=== PATIENT | male | born 1975 | race Caucasian/White ===

== ENCOUNTER 2017-01-28 16:08 | Inpatient (IN) | payer MEDICARE, MEDICAID ==
[~2017-01-28 16:08] MED LIST: ALPHAGAN P5 M1 LEFT EYE; AMITRIPTYLINE H50 M1 PO; ANDROGEL2.5 G1 TD; ASPIRIN81 M1 PO; ASPIRIN81 MG PO; AUGMENTIN 875-1 EAC1 PO; AUGMENTIN 875-1 EAC2 PO; CALCIUM 1,2001 EACH PO; CILOSTAZOL100 M1 PO; CILOSTAZOL100 MG PO; COMBIGAN EYE DRO5 M1 EACH EYE; GINKGO BILOBA120 M2 PO; GINKGO BILOBA120 MG PO; HUMALOG100 U/ML SQ; HUMALOG100 UNIT/2 SC; INVANZ1 GM IV; LANTUS SOL100 UNIT/1 SC; LEVAQUIN750 M1 PO; LEVOTHYROXINE150 MCG PO; LEVOTHYROXINE200 MC4 PO; LEVOTHYROXINE200 MCG PO; LIPITOR20 M1 PO; LISINOPRIL10 M1 PO; LISINOPRIL20 M1 PO; LORTAB 5-325 M1 EAC1 PO; MULTIVITAMINS1 EAC6 PO; NEURONTIN400 M1 PO; NEW INSULIN; NORCO 5-325 TA1 EACH PO; NORCO 5/3251 TA1 PO; NOVOLIN N100 U/ML SQ; PERCOCET 5-3251 EACH PO; POTASSIUM CHLO10 ME2 PO; SELENIUM200 MC4 PO; SILVADENE20 G1 TOP; SULFAMYLON SOL250 M1 TOP; TIMOLOL MALEATE5 M3 LEFT EYE; TRAMADOL HCL50 M2 PO; TRAMADOL HCL50 MG PO; TRUSOPT10 ML RIGHT EYE; ULTRAM50 M1 PO; VITAMIN B-6100 MG PO; VITAMIN C500 M3 PO; VITAMIN D31000 UNI3 PO; WELLBUTRIN SR150 M2 PO; ZINC50 M2 PO; [UNRECOGNIZED DRUG - MIXTURE] PO
[2017-01-28] MEDS ORDERED: TRESIBA FL200 UNIT/1 SC (16:22)
[2017-01-28 17:01] LABS: BASO % 0.4 % (0-2); EOS % 0.8 % (0-7); EOSINOPHIL ABSOLUTE COUNT 0.1 tho/cmm (0.0-0.7); HCT-HEMATOCRIT 34.3 % (36.0-53.5); HGB-HEMOGLOBIN 11.3 gm/dl (13.5-17.0); IMMATURE GRANULOCYTES ABSOLUTE 0.02 tho/cmm (0-0.03); IMMATURE GRANULOCYTES PERCENT 0.2 % (0-0.3); LYMPH % 5.5 % (20-45); LYMPH ABSOLUTE COUNT 0.5 tho/cmm (0.8-4.5); MCH (MEAN CORPUSCULAR HGB) 28.8 pg (28.0-32.0); MCHC MEAN CORPUSCULAR HGB CONC 32.9 % (32.0-36.0); MCV (MEAN CELL VOLUME) 87.5 fl (82.0-96.0); MONO % 6.6 % (0-12); MONOCYTE ABSOLUTE COUNT 0.6 tho/cmm (0.0-1.2); NEUTROPHIL ABSOLUTE COUNT 8.1 tho/cmm (1.6-8.0); NEUTROPHIL-AUTOMATED 8.1 tho/cmm (1.6-8.0); NEUTROPHILS % 86.5 % (40-80); PLATELET COUNT 295 tho/cmm (150-450); RED BLOOD COUNT 3.92 mil/cmm (4.40-5.70); RED CELL DISTRIBUTION WIDTH 13.5 % (12.4-16.4); WHITE BLOOD COUNT 9.3 tho/cmm (4.0-10.0)
[2017-01-28 17:23] LABS: ALB/GLOB RATIO 0.5 (0.8-2.0); ALBUMIN 2.2 g/dl (3.5-5.0); ALKALINE PHOSPHATASE 205 U/L (33-138); ALT/SGPT 87 U/L (12-78); ANION GAP 12 mmol/L (0-20); AST/SGOT 163 U/L (10-40); BILIRUBIN,TOTAL 0.3 mg/dl (0.0-1.5); BLOOD UREA NITROGEN 44 mg/dl (6-24); CALCIUM 7.7 mg/dl (8.5-10.5); CARBON DIOXIDE-VENOUS 23 mmol/L (22-32); CHLORIDE 106 mmol/l (96-110); CREATININE 2.19 mg/dl (0.60-1.30); GLUCOSE 120 mg/dL (70-110); POTASSIUM 4.2 mmol/L (3.7-5.1); SODIUM 137 mmol/L (135-145); eGFR VALUE FOR BLACK 41 mL/Min
[2017-01-28 17:29] LABS: PROCALCITONIN 1.04 ng/ml (0.05-0.09)
[2017-01-28 17:43] LABS: INR 1.1 INR (0.9-1.1); PROTHROMBIN TIME 12.7 SECONDS (9.0-13.6)
[2017-01-29 02:31] LABS: BASO % 1.1 % (0-2); BASO ABSOLUTE COUNT 0.1 tho/cmm (0.0-0.2); EOS % 3.1 % (0-7); EOSINOPHIL ABSOLUTE COUNT 0.2 tho/cmm (0.0-0.7); HCT-HEMATOCRIT 32.7 % (36.0-53.5); HGB-HEMOGLOBIN 10.8 gm/dl (13.5-17.0); IMMATURE GRANULOCYTES ABSOLUTE 0.01 tho/cmm (0-0.03); IMMATURE GRANULOCYTES PERCENT 0.2 % (0-0.3); LYMPH % 10.5 % (20-45); LYMPH ABSOLUTE COUNT 0.7 tho/cmm (0.8-4.5); MCH (MEAN CORPUSCULAR HGB) 28.7 pg (28.0-32.0); MEAN PLATELET VOLUME 9.2 cmc (9.4-12.4); MONO % 9.5 % (0-12); MONOCYTE ABSOLUTE COUNT 0.6 tho/cmm (0.0-1.2); NEUTROPHILS % 75.6 % (40-80); PLATELET COUNT 306 tho/cmm (150-450); RED BLOOD COUNT 3.76 mil/cmm (4.40-5.70); RED CELL DISTRIBUTION WIDTH 13.4 % (12.4-16.4); WHITE BLOOD COUNT 6.6 tho/cmm (4.0-10.0)
[2017-01-29 02:40] LABS: ANION GAP 10 mmol/L (0-20); BLOOD UREA NITROGEN 35 mg/dl (6-24); CALCIUM 7.7 mg/dl (8.5-10.5); CARBON DIOXIDE-VENOUS 23 mmol/L (22-32); CHLORIDE 109 mmol/l (96-110); POTASSIUM 4.1 mmol/L (3.7-5.1); SODIUM 138 mmol/L (135-145); eGFR VALUE FOR BLACK 59 mL/Min
[2017-01-29 02:41] LABS: CREATININE 1.62 mg/dl (0.60-1.30); GLUCOSE 260 mg/dL (70-110)
[2017-01-29 02:46] LABS: TSH-THYROID STIMULATING HORM. 3.98 uIU/ml (0.40-3.80)
[2017-01-30 05:24] LABS: BASO % 0.4 % (0-2); BASO ABSOLUTE COUNT 0.1 tho/cmm (0.0-0.2); EOS % 3.5 % (0-7); EOSINOPHIL ABSOLUTE COUNT 0.5 tho/cmm (0.0-0.7); HCT-HEMATOCRIT 28.9 % (36.0-53.5); HGB-HEMOGLOBIN 9.5 gm/dl (13.5-17.0); IMMATURE GRANULOCYTES ABSOLUTE 0.03 tho/cmm (0-0.03); IMMATURE GRANULOCYTES PERCENT 0.2 % (0-0.3); LYMPH % 12.5 % (20-45); LYMPH ABSOLUTE COUNT 1.7 tho/cmm (0.8-4.5); MCH (MEAN CORPUSCULAR HGB) 28.1 pg (28.0-32.0); MCHC MEAN CORPUSCULAR HGB CONC 32.9 % (32.0-36.0); MCV (MEAN CELL VOLUME) 85.5 fl (82.0-96.0); MEAN PLATELET VOLUME 8.8 cmc (9.4-12.4); MONOCYTE ABSOLUTE COUNT 1.5 tho/cmm (0.0-1.2); NEUTROPHILS % 72.4 % (40-80); PLATELET COUNT 288 tho/cmm (150-450); RED BLOOD COUNT 3.38 mil/cmm (4.40-5.70); RED CELL DISTRIBUTION WIDTH 13.5 % (12.4-16.4)
[2017-01-30 05:36] LABS: WHITE BLOOD COUNT 13.8 tho/cmm (4.0-10.0)
[2017-01-30 05:43] LABS: ALB/GLOB RATIO 0.5 (0.8-2.0); ALKALINE PHOSPHATASE 295 U/L (33-138); ANION GAP 12 mmol/L (0-20); AST/SGOT 120 U/L (10-40); BILIRUBIN,TOTAL 0.4 mg/dl (0.0-1.5); BLOOD UREA NITROGEN 25 mg/dl (6-24); CALCIUM 7.7 mg/dl (8.5-10.5); CARBON DIOXIDE-VENOUS 23 mmol/L (22-32); CHLORIDE 107 mmol/l (96-110); GLUCOSE 212 mg/dL (70-110); POTASSIUM 4.1 mmol/L (3.7-5.1); SODIUM 138 mmol/L (135-145); eGFR VALUE FOR BLACK 56 mL/Min
[2017-01-30 05:51] LABS: ALT/SGPT 134 U/L (12-78)
[2017-01-30] MEDS ORDERED: VANCOMYCIN HCL500 MG IV (13:25)
== END 2017-01-30 14:30 | DRG 618 ==
LOC: BURN 16:08
PROVIDERS: Family Medicine; ADMIT Surgery
PROC: 0Y6P0Z3 Detachment at Right 1st Toe, Low, Open Approach (ICD-10-PCS; principal; 2017-01-30)
PROC: 0JBQ0ZZ Excision of Right Foot Subcutaneous Tissue and Fascia, Open Approach (ICD-10-PCS; 2017-01-30)
PROC: 02HV33Z Insertion of Infusion Device into Superior Vena Cava, Percutaneous Approach (ICD-10-PCS; 2017-01-30)
DX: E10.69 Type 1 diabetes mellitus with other specified complication (principal); E10.610 Type 1 diabetes mellitus with diabetic neuropathic arthropathy; E10.22 Type 1 diabetes mellitus with diabetic chronic kidney disease; N17.9 Acute kidney failure, unspecified; N18.3 Chronic kidney disease, stage 3 (moderate); B95.62 Methicillin resistant Staphylococcus aureus infection as the cause of diseases classified elsewhere; E10.51 Type 1 diabetes mellitus with diabetic peripheral angiopathy without gangrene; E10.65 Type 1 diabetes mellitus with hyperglycemia; Z91.19 Patient's noncompliance with other medical treatment and regimen; I12.9 Hypertensive chronic kidney disease with stage 1 through stage 4 chronic kidney disease, or unspecified chronic kidney disease; E78.5 Hyperlipidemia, unspecified; E03.9 Hypothyroidism, unspecified; Z89.412 Acquired absence of left great toe; Z89.421 Acquired absence of other right toe(s); Z79.82 Long term (current) use of aspirin; Z87.891 Personal history of nicotine dependence
CPT/HCPCS: C1751; C8929; J0171; J1650; J1815; J2250; J2405; J2543; J3010; J3260; J3370; J7030